=== PATIENT | female | born 1990 | race African-American/Black ===

== ENCOUNTER → 2017-07-01 | Outpatient (CLI) | payer MEDICAID, OTHER ==
[~2017-07-01] MED LIST: DOXY100T PO; Z.0.NO CURRENT MEDS
== END ==
LOC: HPND 10:14
PROVIDERS: ATTEND Obstetrics & Gynecology
DX: O09.292 Supervision of pregnancy with other poor reproductive or obstetric history, second trimester (principal); O34.32 Maternal care for cervical incompetence, second trimester
CPT/HCPCS: 76805; 76817